=== PATIENT | male | born 1980 | race Two or more races ===

== ENCOUNTER 2020-12-02 19:03 | Emergency (ER) | payer OTHER ==
[~2020-12-02] VITALS: Ht 162.6 cm; Wt 100.0 kg
[2020-12-02 20:06] VITALS: BP 130/78
== END 2020-12-02 20:15 | disposition home or self-care (01) ==
LOC: EMS 19:03
DX: S23.41XA Sprain of ribs, initial encounter (principal); X58.XXXA Exposure to other specified factors, initial encounter; Y93.89 Activity, other specified; Y92.89 Other specified places as the place of occurrence of the external cause; Y99.0 Civilian activity done for income or pay
CPT/HCPCS: 71101; 99283